=== PATIENT | female | born 2000 | race Hispanic/Latino ===

== ENCOUNTER → 2025-03-12 13:55 | Outpatient (CLI) | payer OTHER, SELFPAY ==
[2025-03-12 15:21] LABS: Natera Collection Specimen Collected
[2025-03-12 15:53] LABS: Add Manual Diff / Slide Review NO; Basophils Absolute Auto 0 /uL (0-100); Basophils Percent Auto 0.5 % (0-2); Eosinophils Absolute Auto 100 /uL (0-450); Eosinophils Percent Auto 1.2 % (2-4); Hematocrit 37.3 % (36-46); Hemoglobin 12.7 g/dL (12.0-16.0); Lymphocytes Absolute Auto 1400 /uL (1100-4500); Lymphocytes Percent Auto 16.8 % (25-40); Mean Corpuscular HGB Conc 34.1 % (30-36); Mean Corpuscular Hemoglobin 29.4 PG (26-34); Mean Corpuscular Volume 86.3 fL (80-100); Monocytes Absolute Auto 500 /uL (0-900); Monocytes Percent Auto 6.6 % (3-14); Neutrophils Absolute Auto 6100 /uL (1500-7000); Neutrophils Percent Auto 74.9 % (50-75); Platelet Count 252 X10^3/uL (150-400); Red Blood Cell Count 4.32 X10^6/uL (4.0-5.2); White Blood Cell Count 8.2 X10^3/uL (4.5-11.0)
[2025-03-12 16:08] LABS: Appearance Urine UA CLEAR; Bilirubin Urine UA NEGATIVE (NEGATIVE); Color Urine UA YELLOW; Glucose Urine UA NEGATIVE (Negative); Ketones Urine UA NEGATIVE (NEGATIVE); Leukocyte Esterase Urine UA NEGATIVE (NEGATIVE); Nitrite Urine UA NEGATIVE (Negative); Occult Blood Urine UA NEGATIVE (Negative); Protein Urine UA TRACE (Negative); Specific Gravity Urine UA >=1.030 (1.000-1.035); Urobilinogen Urine UA 0.2 E.U./dL (0.2)
[2025-03-12 16:17] LABS: Urine Volume 10mL (spun)
[2025-03-12 16:18] LABS: Bacteria Urine Few (2-10); Calcium Oxalate Crystals Urine Occasional; Culture Indicated Urine Cult Not Indicated; Mucus Urine 4+ (Negative); RBC Urine None Seen (0-5/HPF); Squamous Epithelial Cell Urine 1-5 /HPF (0-5/HPF); WBC Urine 0-1/HPF (0-5/HPF)
[2025-03-13 15:13] LABS: Hepatitis B Surface Antigen NEGATIVE s/c (NEGATIVE); Rubella Antibody IgG 33.7 IU/mL (>15)
[2025-03-13 15:28] LABS: HIV 1 & 2 Ab/Ag 4th Gen Combo NEGATIVE (NEGATIVE); Hep C Virus Ab w/Reflex Quant NEGATIVE s/c (NEGATIVE)
[2025-03-14 13:36] LABS: Varicella IgG Antibody Non Reactive (Non Reactive)
== END ==
PROVIDERS: PCP Family Medicine; Referring Provider Family Medicine; Visit Provider Family Medicine
DX: Z34.01 Encounter for supervision of normal first pregnancy, first trimester (principal)
CPT/HCPCS: 36415; 80055; 81003; 81015; 86787; 86803; 86850; 86900; 86901; 87086; 87389

== ENCOUNTER → 2025-05-25 11:16 | Outpatient (CLI) | payer OTHER, SELFPAY ==
--- NOTE | 2025-05-25 11:17 | DI.US.S_ITS ---
PROCEDURE: US OB >= 14 WEEKS FETUS INDICATIONS: ANATOMY SCAN COMPLETE OUTSIDE/PRIOR DATING DATA: Last menstrual period (LMP): Unknown. First dating scan (date and location): Today. Estimated date of delivery (VINNY) from first dating scan: 09/20/2025. TECHNIQUE: Real-time scanning was performed of the fetus, with image documentation and biometric measurements. Endovaginal scanning: COMPARISON: None. FINDINGS: General: A single living intrauterine gestation is present. Presentation: Breech. Placenta: Placental position is posterior , without previa. Normal >2 cm. Low lying is <2 cm to the edge. Previa covers the internal os. Amniotic fluid index: 11.8 cm, normal range is 5-24 cm. Single deepest vertical pocket is 3.3 cm. heart rate: 147 beats per minute. Maternal cervical canal: 4.2 cm long. Normal lower limit is 2.5 cm. biometrics: Biparietal diameter: 5.7 cm Head circumference: 21 cm Abdominal circumference: 18.4 cm Femur length: 4 cm Clinically estimated gestational age: 23 weeks 1 day Composite gestational age from present scan: 23 weeks 1 day Estimated weight and percentile: 41st Anatomic survey: Neuro: Ventricles are non-dilated at less than 10 mm. Cisterna magna is normal at 3-11 mm. Cerebellum is normal in size and morphology. Nuchal skin fold: Normal at less than 6 mm between 14-21 weeks gestational age. Face: Nose and lips, facial profile are normal. Spine: No evidence for spina bifida. Heart: 4-chambered heart is present, with normal ventricular outflow tracts. Diaphragm: Diaphragm is intact. Stomach: Left-sided stomach is present. Kidneys: No hydronephrosis. Normal is less than 5 mm in 2nd trimester, less than 7 mm in 3rd trimester. Cord: 3-vessel cord has orthotopic insertion. Bladder: Normal in size. Extremities: All 4 extremities identified. IMPRESSION: Single live intrauterine corresponds with an estimated gestational age of 23 weeks and 1 day with an estimated date of delivery of 09/20/2025. We strive to produce accurate, complete, and clear reports of imaging services. To assist us in improving patient care, this report was composed using standard report templates and voice recognition software. Therefore, it may contain abnormal punctuation, insertions and/or omissions. Occasional wrong-word or sound-alike substitutions may occur. Though we review the report and make efforts to correct it, we do recommend that the report be read carefully in proper context to recognize any text inaccuracies. Dictated by: Anai Murcia M.D. on 05/25/2025 at 14:31 Approved by: Anai Murcia M.D. on 05/25/2025 at 14:34
== END ==
LOC: US 11:17
PROVIDERS: PCP Family Medicine; Referring Provider Family Medicine; Visit Provider Family Medicine
DX: Z36.89 Encounter for other specified antenatal screening (principal); Z3A.23 23 weeks gestation of pregnancy
CPT/HCPCS: 76811

== ENCOUNTER → 2025-06-04 14:26 | Outpatient (CLI) | payer OTHER, SELFPAY ==
[2025-06-04 16:14] LABS: Add Manual Diff / Slide Review NO; Hematocrit 31.6 % (36-46); Hemoglobin 10.7 g/dL (12.0-16.0); Lymphocytes Absolute Auto 1100 /uL (1100-4500); Mean Corpuscular HGB Conc 33.9 % (30-36); Mean Corpuscular Hemoglobin 29.0 PG (26-34); Mean Corpuscular Volume 85.6 fL (80-100); Platelet Count 246 X10^3/uL (150-400)
[2025-06-04 16:36] LABS: GTT (PREG) 1 Hour PP 50gm Dose 160 mg/dL (76-139)
== END ==
PROVIDERS: PCP Family Medicine; Referring Provider Family Medicine; Visit Provider Family Medicine
DX: Z34.80 Encounter for supervision of other normal pregnancy, unspecified trimester (principal)
CPT/HCPCS: 82950; 85025; 86850

== ENCOUNTER 2025-07-20 10:08 | Observation (INO) | payer OTHER, SELFPAY ==
[2025-07-20 11:42] LABS: Add Manual Diff / Slide Review NO; Hematocrit 28.9 % (36-46); Hemoglobin 9.7 g/dL (12.0-16.0); Lymphocytes Absolute Auto 1000 /uL (1100-4500); Mean Corpuscular HGB Conc 33.4 % (30-36); Mean Corpuscular Hemoglobin 27.2 PG (26-34); Mean Corpuscular Volume 81.5 fL (80-100); Platelet Count 168 X10^3/uL (150-400)
[2025-07-20 11:57] LABS: Protein (Total) Urine Random 20 mg/dL (0-12); Protein Creatinine Ratio Urine 0.11 GRAM/24H
[2025-07-20 11:58] LABS: Alanine Aminotransferase 15 IU/L (<35); Albumin 3.6 g/dL (3.5-5.0); Albumin Globulin Ratio 1.0 (1.0-2.8); Alkaline Phosphatase 84 U/L (38-126); Blood Urea Nitrogen 8 mg/dL (7-17); Calcium 8.7 mg/dL (8.4-10.2); Carbon Dioxide 19 mmol/L (22-32); Chloride 106 mmol/L (98-107); Estimated Glomerular Filt Rate > 60 mL/min (>60); Globulin 3.5 g/dL (1.7-4.1); Glucose 99 mg/dL (70-99); HEMOLYSIS < 15 (0-50); Potassium 3.4 mmol/L (3.4-5.1); Sodium 133 mmol/L (137-145); Total Protein 7.1 g/dL (6.3-8.2); Uric Acid 4.9 mg/dL (2.5-6.2)
--- NOTE | 2025-07-20 12:08 | P.TNLD_ITS ---
Visit Information Visit Information Date of evaluation: 07/20/25 Primary OB Provider: Mekhi Santa On-call OB Provider: Perla Rolon Comments/Additional reasons for admission: 25 yo at 31w1d presenting for elevated blood pressures after being evaluated last night at [facility] for a sore throat and was found to have elevated blood pressures. Reports no headaches, vision changes, RUQ pain, or increased swelling. Vital Signs Vital Signs: BP 153/89, P 93 PFSH Surgical History (Updated 02/03/25 @ 13:07 by Virginia Murray, RN) No pertinent past surgical history Family History (Updated 02/03/25 @ 13:08 by Virginia Murray, SUBHA) Father Diabetes mellitus Grandfather Diabetes mellitus Grandfather Colon cancer Social History marital status: number of children: 0 household members: spouse lives independently: Yes caregiver/support person: No housing: house pets and animals: No education level: high school occupational status: previously employed ([employer]) current occupational exposures/hazards: No special kaity needs: No travel history: over 6 months ago seatbelt use: always water heater temp set < 120 deg: Yes working smoke detector in home: Yes fire extinguisher in home: No carbon monox detector in home: Yes firearms in home: No do you feel safe at home: Yes second hand exposure: No alcohol intake: never substance use type: marijuana (as a teen, not anymore) during the past year weight has: remained stable well-balanced diet: about half the time daily servings fruits/ve-1 (1-2) caffeine: No Type(s) of exercise: aerobic and weight lifting Objective Labs 07/20/25 11:20 07/20/25 11:20 Labs: Laboratory Results - last 24 hr 07/20/25 11:20 WBC 10.1 RBC 3.55 L Hgb 9.7 L Hct 28.9 L MCV 81.5 MCH 27.2 MCHC 33.4 RDW 16.1 H Plt Count 168 Neut % (Auto) 83.6 H Lymph % (Auto) 10.0 L [place] % (Auto) 5.2 Eos % (Auto) 1.0 L Baso % (Auto) 0.2 Neut # (Auto) 8400 H Lymph # (Auto) 1000 L [place] # (Auto) 500 Eos # (Auto) 100 Baso # (Auto) 0 Sodium 133 L Potassium 3.4 Chloride 106 Carbon Dioxide 19 L BUN 8 Creatinine 0.63 Estimated GFR > 60 BUN/Creatinine Ratio 12.7 Glucose 99 Uric Acid 4.9 Calcium 8.7 Total Bilirubin 0.4 AST 29 ALT 15 Alkaline Phosphatase 84 Total Protein 7.1 Albumin 3.6 Globulin 3.5 Albumin/Globulin Ratio 1.0 U Random Total Protein 20 H Urine Creatinine 180.47 Protein/Creatinin Ratio 0.11 Evaluation Evaluation Baseline heart rate: 145 Variability: Moderate (6-25) monitor accelerations: Present Monitor Decelerations: Absent Diagnosis, Plan/Disposition Plan/Disposition Plan: 25 yo at 31w1d found to have new onset gestational hypertension. No symptoms of pre-e, no severe range pressures. CMP, CBC reassuring from pre-e standpoint. P/C 0.11. Anemia noted, recommend iron supplementation. -given blue band and blood pressure cuff -fu this week with primary OB
== END 2025-07-20 12:21 | disposition home or self-care (01) ==
PROVIDERS: Admitting Provider Student in an Organized Health Care Education/Training Program; PCP Family Medicine; Referring Provider Student in an Organized Health Care Education/Training Program; Visit Provider Student in an Organized Health Care Education/Training Program
DX: O13.3 Gestational [pregnancy-induced] hypertension without significant proteinuria, third trimester (principal); O99.013 Anemia complicating pregnancy, third trimester; D64.9 Anemia, unspecified; Z3A.31 31 weeks gestation of pregnancy
CPT/HCPCS: 59025; 59050; 80053; 84550; 85025; G0378; G0379

== ENCOUNTER → 2025-07-23 15:39 | Outpatient (CLI) | payer OTHER, SELFPAY | LOC: LAB 15:41 | PROVIDERS: PCP Family Medicine; Visit Provider Family Medicine | DX: R39.89 Other symptoms and signs involving the genitourinary system (principal) | CPT/HCPCS: 87491; 87563; 87591 ==

== ENCOUNTER 2025-08-06 15:32 | Inpatient (IN) | payer OTHER, SELFPAY ==
--- NOTE | 2025-08-06 15:45 | DI.US.S_ITS ---
PROCEDURE: US OB LIMITED INDICATIONS: PRE-ECLAMPSIA; BPP, EFW OUTSIDE/PRIOR DATING DATA: Last menstrual period (LMP): Not given. LMP-based estimated date of delivery (VINNY): Not applicable. First dating scan (date and location): 02/12/2025. Estimated date of delivery (VINNY) from first dating scan: 09/20/2025. TECHNIQUE: Real-time scanning was performed of the fetus, with image documentation and biometric measurements. COMPARISON: [facility], OB >= 14 WEEKS FETUS, 05/25/2025, 11:42. FINDINGS: General: A single live intrauterine gestation is present. Presentation: Vertex. Placenta: Placental position is fundal , without previa. Amniotic fluid index: 9.6 cm, normal range is 5-24 cm. Single deepest vertical pocket is 4.3 cm. heart rate: 167 beats per minute. Maternal cervical canal: Not seen biometrics: Biparietal diameter: 8.4 cm equals 33 weeks 6 days Head circumference: 30.8 cm equals 34 weeks 3 days Abdominal circumference: 28.6 cm equals 32 weeks 4 days Femur length: 6.2 cm equals 32 weeks 1 day Clinically estimated gestational age: 33 weeks 4 days Composite gestational age from present scan: 33 weeks 2 days Estimated weight and percentile: 2041 g, 20th percentile Other: Biophysical profile: Tone: 2 points Movement: 2 points Respiration: 2 points Largest pocket: 2 points IMPRESSION: Normal biophysical profile, 8/8 points. The estimated weight is 2041 g, 28th percentile. We strive to produce accurate, complete, and clear reports of imaging services. To assist us in improving patient care, this report was composed using standard report templates and voice recognition software. Therefore, it may contain abnormal punctuation, insertions and/or omissions. Occasional wrong-word or sound-alike substitutions may occur. Though we review the report and make efforts to correct it, we do recommend that the report be read carefully in proper context to recognize any text inaccuracies. Dictated by: Ponce Irwin M.D. on 08/06/2025 at 15:37 Approved by: Ponce Irwin M.D. on 08/06/2025 at 15:39
[2025-08-06 16:13] LABS: Add Manual Diff / Slide Review NO; Hematocrit 34.4 % (36-46); Hemoglobin 11.3 g/dL (12.0-16.0); Lymphocytes Absolute Auto 2000 /uL (1100-4500); Mean Corpuscular HGB Conc 32.9 % (30-36); Mean Corpuscular Hemoglobin 26.8 PG (26-34); Mean Corpuscular Volume 81.5 fL (80-100); Platelet Count 178 X10^3/uL (150-400)
[2025-08-06] MEDS: LABETALOL 20 MG/4 ML SYRINGE IV (16:26)
[2025-08-06] MEDS: MAGNESIUM SULFATE 4 GM/100 ML PIGGYBACK IV (16:53)
[2025-08-06] MEDS: MAGNESIUM SULFATE 20 GM/500 ML IV.SOLN IV (17:18)
[2025-08-06 17:25] LABS: Protein (Total) Urine Random 2619 mg/dL (0-12); Protein Creatinine Ratio Urine 21.10 GRAM/24H
[2025-08-06 17:27] LABS: Alanine Aminotransferase 15 IU/L (<35); Albumin 3.0 g/dL (3.5-5.0); Albumin Globulin Ratio 1.0 (1.0-2.8); Alkaline Phosphatase 106 U/L (38-126); Blood Urea Nitrogen 13 mg/dL (7-17); Calcium 8.4 mg/dL (8.4-10.2); Carbon Dioxide 16 mmol/L (22-32); Chloride 108 mmol/L (98-107); Estimated Glomerular Filt Rate > 60 mL/min (>60); Globulin 3.1 g/dL (1.7-4.1); Glucose 86 mg/dL (70-99); HEMOLYSIS < 15 (0-50); Potassium 3.5 mmol/L (3.4-5.1); Sodium 130 mmol/L (137-145); Total Protein 6.1 g/dL (6.3-8.2); Uric Acid 5.9 mg/dL (2.5-6.2)
[2025-08-06 17:45] LABS: INR 0.8 (0.9-1.3); Prothrombin Time 9.5 SECONDS (9.4-12.5)
[2025-08-06 17:47] LABS: Ur Specific Gravity Normal (Normal)
[2025-08-06 17:48] LABS: UR Morphine/Opiate cutoff 300 Negative (Negative); Urine MDMA Negative (Negative); Urine Methamphetamines Negative (Negative); Urine Tetrahydrocannabinol Negative (Negative); Urine Tricyclic Antidepressant Negative (Negative)
--- NOTE | 2025-08-06 18:11 | PM.OBTRLD ---
Visit Information Visit Information Date of evaluation: 08/06/25 Primary OB Provider: Mekhi Santa Reason for Evaluation: Yes other Comments/Additional reasons for admission: 25-year-old at GA 33+4 weeks. Seen in clinic today for routine PNC, BP noted to be 176/120, remained severe range on repeat. Patient reports she has been monitoring blood pressure at home has ranged 150s to 180s systolic, 90s-110s diastolic over the past week. She has also developed new onset peripheral edema most prominent in her lower legs but also affecting both hands. Endorses normal movement. Denies headache, visual scotoma, chest pain, shortness on breath, right upper quadrant pain. course notable for gestational hypertension diagnosed at 31 weeks, abnormal 1 hour GTT with subsequent normal 3 hour GTT. [facility] Surgical History (Updated 02/03/25 @ 13:07 by Virginia Murray RN) No pertinent past surgical history Family History (Updated 02/03/25 @ 13:08 by Virginia Murray RN) Father Diabetes mellitus Grandfather Diabetes mellitus Grandfather Colon cancer Social History marital status: number of children: 0 household members: spouse lives independently: Yes caregiver/support person: No housing: house pets and animals: No education level: high school occupational status: previously employed ([employer]) current occupational exposures/hazards: No special kaity needs: No travel history: over 6 months ago seatbelt use: always water heater temp set < 120 deg: Yes working smoke detector in home: Yes fire extinguisher in home: No carbon monox detector in home: Yes firearms in home: No do you feel safe at home: Yes second hand exposure: No alcohol intake: never substance use type: marijuana (as a teen, not anymore) during the past year weight has: remained stable well-balanced diet: about half the time daily servings fruits/ve-1 (1-2) caffeine: No Type(s) of exercise: aerobic and weight lifting Exam Narrative Exam Narrative: General: Well-nourished, no distress HEENT: NC/AT, EOMI, moist mucous membranes CV: RRR, normal S1 S2, no m/g/r Resp: CTAB Abd: Gravid, soft, NTND, +BS Ext: Full ROM, 2+ edema to lower shins Skin: No rash or lesions Neuro: A&O x3, normal tone, no focal deficits Objective Imaging US OB LIMITED: Radiologist's impression: FINDINGS: General: A single live intrauterine gestation is present. Presentation: Vertex. Placenta: Placental position is fundal , without previa. Amniotic fluid index: 9.6 cm, normal range is 5-24 cm. Single deepest vertical pocket is 4.3 cm. heart rate: 167 beats per minute. Maternal cervical canal: Not seen biometrics: Biparietal diameter: 8.4 cm equals 33 weeks 6 days Head circumference: 30.8 cm equals 34 weeks 3 days Abdominal circumference: 28.6 cm equals 32 weeks 4 days Femur length: 6.2 cm equals 32 weeks 1 day Clinically estimated gestational age: 33 weeks 4 days Composite gestational age from present scan: 33 weeks 2 days Estimated weight and percentile: 2041 g, 20th percentile Other: Biophysical profile: Tone: 2 points Movement: 2 points Respiration: 2 points Largest pocket: 2 points IMPRESSION: Normal biophysical profile, 8/8 points. The estimated weight is 2041 g, 28th percentile. We strive to produce accurate, complete, and clear reports of imaging services. To assist us in improving patient care, this report was composed using standard report templates and voice recognition software. Therefore, it may contain abnormal punctuation, insertions and/or omissions. Occasional wrong-word or sound-alike substitutions may occur. Though we review the report and make efforts to correct it, we do recommend that the report be read carefully in proper context to recognize any text inaccuracies. Dictated by: Ponce Irwin M.D. on 08/06/2025 at 15:37 Approved by: Ponce Irwin M.D. on 08/06/2025 at 15:39 Labs 08/06/25 15:55 08/06/25 17:00 Labs: Laboratory Results - last 24 hr 08/06/25 08/06/25 08/06/25 15:45 15:55 17:00 WBC 9.8 RBC 4.21 Hgb 11.3 L Hct 34.4 L MCV 81.5 MCH 26.8 MCHC 32.9 RDW 17.3 H Plt Count 178 Neut % (Auto) 73.1 Lymph % (Auto) 19.9 L [place] % (Auto) 5.9 Eos % (Auto) 0.2 L Baso % (Auto) 0.9 Neut # (Auto) 7200 H Lymph # (Auto) 2000 [place] # (Auto) 600 Eos # (Auto) 0 Baso # (Auto) 100 PT 9.5 INR 0.8 L Sodium 130 L Potassium 3.5 Chloride 108 H Carbon Dioxide 16 L BUN 13 Creatinine 0.70 Estimated GFR > 60 BUN/Creatinine Ratio 18.6 Glucose 86 Uric Acid 5.9 Calcium 8.4 Total Bilirubin 0.4 AST 32 ALT 15 Alkaline Phosphatase 106 Total Protein 6.1 L Albumin 3.0 L Globulin 3.1 Albumin/Globulin Ratio 1.0 U Random Total Protein 2619 H Urine Creatinine 124.11 Protein/Creatinin Ratio 21.10 U Opiates 300ng/mL cut Negative Ur Oxycodone Screen Negative Urine Methadone Screen Negative Ur Barbiturates Screen Negative U Tricyclic Antidepress Negative Ur Phencyclidine Scrn Negative Ur Amphetamines Screen Negative U Methamphetamines Scrn Negative Ur MDMA Scrn (Ecstasy) Negative U Benzodiazepines Scrn Negative Urine Cocaine Screen Negative U Marijuana (THC) Screen Negative Urine pH Normal Urine Specific [place] Normal Ur Creatinine Normal Evaluation Evaluation Baseline heart rate: 130 Variability: Moderate (6-25) monitor accelerations: Present Monitor Decelerations: Absent Contraction Frequency (minutes): 4 Uterine Contraction Intensity: Mild Category of Tracing: Reactive Status: Category l Diagnosis, Plan/Disposition Final Diagnosis (1) Severe preeclampsia: Status: Acute (2) 33 weeks gestation of : Status: Acute Plan/Disposition Plan: 25-year-old at GA 33+4 with severe preeclampsia (severe range BP, new peripheral edema, urine P/C 21). Labs otherwise demonstrate normal renal and liver function. status reassuring with BPP 10/10, cephalic presentation on US today. Management guidelines recommend delivery at 34 weeks gestation which is beyond the staffing/care capabilities at this facility. Patient accepted for transfer to [facility] by Dr. Starks ([facility]). - BP initially severe range, adequately controlled w/IV labetalol 20mg x1 dose - Start labetalol 200mg PO per [facility] request - IV MgSO4 4g bolus, 2g/hr - Betamethasone 12mg IM x1 for lung maturity - ALS transport by air OB Disposition: tertiary care transfer
[2025-08-06] MEDS: BETAMETHASONE 30 MG/5 ML MDV 12 MG IM (18:24)
[2025-08-06 18:40] VITALS: BP 137/88; PULSE 64
[2025-08-06] MEDS: LABETALOL 100 MG TABLET 200 MG PO (18:40)
== END 2025-08-06 20:07 | disposition short-term general hospital (02) | DRG 833 ==
PROVIDERS: Admitting Provider Family Medicine; PCP Family Medicine; Referring Provider Family Medicine; Visit Provider Family Medicine
DX: O14.13 Severe pre-eclampsia, third trimester (principal); Z3A.33 33 weeks gestation of pregnancy
CPT/HCPCS: 36415; 59025; 59050; 76815; 76819; 80053; 80305; 84550; 85025; 85610; 96360; 96372; G0379; J0702; J3475